=== PATIENT | female | born 1965 ===

== ENCOUNTER 2019-04-22 14:59 | Outpatient (CLI) | payer BC ==
--- NOTE | 2019-04-23 07:56 | Mammography Report ---
BILATERAL DIGITAL SCREENING MAMMOGRAM with CAD: 04/22/19 14:59:00 CLINICAL: Routine screening. COMPARISON:08/25/15 FINDINGS: There are scattered areas of fibroglandular density.A stable low density right upper outer partially circumscribed mass and a stable left inner benign intraparenchymal lymph node. No new mass, architectural distortion or suspicious calcifications. IMPRESSION: No mammographic evidence of malignancy. BI-RADS CATEGORY: 2 -- Benign RECOMMENDATION: Routine mammographic screening in one year. COMMENT: Patient follow-up letters are generated by our [employer] application.
== END 2019-04-22 15:00 | disposition home or self-care (01) ==
LOC: SPVWC 14:59
PROVIDERS: ATTEND Obstetrics & Gynecology
DX: Z12.31 Encounter for screening mammogram for malignant neoplasm of breast (principal)
CPT/HCPCS: 77067